=== PATIENT | female | born 1985 | race Caucasian/White ===

== ENCOUNTER → 2019-12-20 | Outpatient (CLI) | payer BC, OTHER ==
[~2019-12-20] MED LIST: APAP500 PO; CORRECTIVE LAXAT5 M1 PO; DERMOPLAST SPRA56 ML; HYDROXYCHLOROQ200 M1 PO; IBUPROFEN 600600 M1 PO; IRON325 PO; LANOLIN56 GM; LORTAB 5 MG/5001 TA1; MOBIC15 MG PO; NORCO 5-325 TA1 EACH PO; NUVARING VAGIN1 EACH VG; ONDANSETRON HCL4 M2 PO; PHENERGAN 25 MG25 M1 PO; PHENERGAN50 MG RC; PREDNISONE 5 MG5 MG PO; PRENATAL PO; SENNA; TUCKS MEDICATE1 EAC1; VICODIN PO; ZANTAC 150MG T150 M1 PO; ZOFRAN ODT4 MG PO
== END ==
LOC: LAB 14:15
PROVIDERS: ATTEND Family Medicine
DX: Z20.828 Contact with and (suspected) exposure to other viral communicable diseases (principal); R50.9 Fever, unspecified

== ENCOUNTER → 2021-06-23 | Outpatient (CLI) | payer BC, OTHER | LOC: NUC 08:48 | PROVIDERS: ATTEND Family Medicine | DX: R10.11 Right upper quadrant pain (principal); R79.89 Other specified abnormal findings of blood chemistry ==